=== PATIENT | female | born 1990 | race African-American/Black ===

== ENCOUNTER 2017-01-10 19:26 | Emergency (ER) | payer OTHER ==
[~2017-01-10] VITALS: Ht 175.3 cm; Wt 90.9 kg
[~2017-01-10 19:26] MED LIST: CEPHALEXIN500 M1 PO; MOTRIN 600600 MG/TAB PO; NAPROSYN500 MG PO; NO HOME MEDICATIONS; PERCOCET 325 MG1 TA2 PO; PRENATAL1 TA1 PO
[2017-01-10 19:31] VITALS: BP 135/86; TEMP 97.3
[2017-01-10 20:29] VITALS: PULSE 68
== END 2017-01-10 20:30 | disposition home or self-care (01) ==
LOC: COL.ER 19:26
DX: R07.9 Chest pain, unspecified (principal)

== ENCOUNTER 2020-12-30 10:00 | Outpatient (RCR) | payer OTHER ==
[2020-12-24 16:06] VITALS: BP 113/63; PULSE 88; TEMP 98.2
--- NOTE | 2020-12-24 17:58 | NUR ---
infusion complete. pt reports has had some mild generalized intermittent itching that is not severe, but nevertheless is different from how she was on arrival. sx onset was about 40 min prior to end of infusion. there is no rash or any other sx at this time. plan to monitor
[2020-12-24 18:01] VITALS: BP 110/62; PULSE 80
[2020-12-28 11:00] VITALS: BP 112/62; PULSE 92; TEMP 98.4
--- NOTE | 2020-12-28 11:32 | NUR ---
This RN completes FHR strip per protocol. Patient denies OB complaints and reports normal movement. Labor precuations and kick counts reviewed.
[~2020-12-30] VITALS: Ht 175.3 cm; Wt 96.3 kg
[~2020-12-30 10:00] MED LIST changes: +PRENATAL TABLET PO
[2020-12-30 10:23] VITALS: BP 118/67; PULSE 90; TEMP 98.2
[2021-04-14] MEDS ORDERED: MOTRIN 800800 MG/TAB PO (11:15)
[2021-04-14] MEDS ORDERED: PERCOCET 325 MG1 TA2 PO (11:15)
== END 2020-12-30 12:22 | disposition home or self-care (01) ==
LOC: EUO 10:00
DX: O99.012 Anemia complicating pregnancy, second trimester (principal); Z3A.21 21 weeks gestation of pregnancy
CPT/HCPCS: J1756; J7050